=== PATIENT | male | born 1960 | race Caucasian/White ===

== ENCOUNTER 2020-02-05 23:57 | Emergency (ER) | payer BC, SELFPAY ==
[2020-02-06 00:03] VITALS: BP 152/93; PULSE 50; RESP 16; TEMP 36.3; O2SAT 100; BMI 28.7
--- NOTE | 2020-02-06 00:21 | CT_ITS ---
PROCEDURE: CT ABDOMEN PELVIS W CON CLINICAL INDICATION: RLQ pain Right lower quadrant pain and vomiting COMPARISON: No exams were available for comparison TECHNIQUE: IV Contrast: 75ML OPTIRAY 350 Oral Contrast None Axial images obtained with sagittal and coronal reformats. All CT scans at the facility use one or more dose reduction, viz: automated exposure control, ma/kV adjustment per patient size (including targeted exams where dose is matched to indication, i.e. head), or iterative reconstruction technique. FINDINGS: LOWER THORAX: There is a faint nodular opacity in the right middle lobe nonspecific measuring 6 by 3 mm. ABDOMEN & PELVIS: The gallbladder is mildly distended. The liver, adrenal glands, and pancreas have an unremarkable appearance. There is a 10 mm low-density nonenhancing lesion in the spleen anteriorly with indeterminate density measuring 33 Hounsfield units. There is mild nonspecific thickening of the distal esophagus with small hiatal hernia. There is mild right hydronephrosis and hydroureter secondary to a 4 mm stone at the ureterovesical junction. There is a 4 mm stone in the upper pole of the left kidney. There is a 2.9 x 1.6 cm left renal cyst. A 2 mm stone is present in the lower pole of the left kidney. There is mild central mesenteric haziness without robina enlargement. This may be seen with mesenteric thank you light is among other entities. The prostate is enlarged at 4.4 cm. Unremarkable appendix. No intestinal obstruction or free air. There is a small umbilical hernia containing fat. No acute bony findings. IMPRESSION: 1. 4 mm right ureterovesical junction stone with mild right hydroureteronephrosis. 2. Left nephrolithiasis. 3. 10 mm indeterminate low-density lesion of the spleen. Suggest 6 month MRI follow-up without and with contrast. 4. Central mesenteric haziness without robina enlargement which may be seen with mesenteric panniculitis among other etiologies. Dictated by: Jd Byrd MD 02/06/2020 08:33 Jd Byrd MD in [place] 02/06/2020 08:33
[2020-02-06 00:29] LABS: Alanine Aminotransferase 33 U/L (12-78); Albumin Level 4.6 g/dl (3.5-5.0); Albumin/Globulin Ratio 1.6 (1.1-1.8); Alkaline Phosphatase 72 U/L (38-126); Anion Gap 10.8 mEq/L (5-15); Aspartate Amino Transferase 41 U/L (17-59); Bilirubin,Total 0.5 mg/dl (0.2-1.3); Blood Urea Nitrogen 24 mg/dl (9-20); Calcium 9.3 mg/dl (8.4-10.2); Carbon Dioxide 32 mmol/L (22.0-30.0); Chloride 103 mmol/L (98-107); Creatinine Clearance Estimated 78 mL/min (50-200); Estimated Glomerular Filt Rate 62 ml/min (>60); GFR (African American) 76 ML/MIN (>60); Globulin 2.8 g/dL (1.3-3.2); Glucose 161 mg/dl (74-100); Lipase 112 U/L (23-300); Potassium 3.8 mmoL/L (3.5-5.1); Sodium 142 mmol/L (136-145); Total Protein,Serum 7.4 g/dl (6.3-8.2)
[2020-02-06 00:30] VITALS: BP 158/91; PULSE 54; RESP 17; O2SAT 99
[2020-02-06 00:30] LABS: Basophils % 0.3 % (0.1-2.0); Eosinophils # 0.3 K/mm3 (0.0-0.4); Eosinophils % 2.8 % (0.1-12.0); Hematocrit 47.8 % (42.0-52.0); Hemoglobin 16.4 g/dL (14.1-18.0); Lymphocytes # 2.4 K/mm3 (0.7-4.5); Lymphocytes % 26.4 % (10-50); Mean Corpuscular HGB Conc 34.2 g/dL (31.8-35.4); Mean Corpuscular Hemoglobin 30.9 pg (27.0-31.2); Mean Corpuscular Volume 90.2 fl (80-94); Mean Platelet Volume 6.8 fl (7.4-10.4); Monocytes # 0.5 K/mm3 (0.1-1.0); Monocytes % 5.5 % (1.7-9.3); Neutrophils # 5.8 K/mm3 (1.8-7.8); Neutrophils % 64.9 % (37.0-80.0); Platelet Count 254 K/mm3 (142-424); Red Cell Distribution Width 13.4 % (11.5-17.5); White Blood Count 8.9 K/mm3 (4.8-10.8)
--- NOTE | 2020-02-06 00:45 | HMH.EDGENADL ---
ED Disposition Clinical Impression: Nephrolithiasis Disposition: Home, Self-Care Condition on Discharge: Good Instructions: DI for Acute Abdomen Additional Instructions: You were found to have a 10mm low density non enhancing lesion in your spleen, you will need an evaluation with PET or MRI or biopsy, please follow up with your primary care doctor to schedule the next workup. Prescriptions: Ketorolac Tromethamine [Toradol 10mg tablet] 10 mg PO Q6H 3 Days #12 tab Prescription Printed Referrals: PCP,Miley [Primary Care Provider] - 7-14 days Zion Clark MD [Staff Physician] - - Critical Care Critical Care Time: No Attestation: On 02/05/20, the high probability of a clinically significant, sudden or life threatening deterioration of the following system(s) required my full and direct attention, intervention and personal management. The time I documented below is in addition to time spent performing reported procedures but includes the following listed in this critical care notation. Medical Decision Making - Isael Inquiry Pt receiving controlled substance: No Vital Signs: 02/06/20 00:03 02/06/20 00:30 Temperature 97.4 F L Temperature Source Oral Pulse Rate [Left] 50 L 54 L Respiratory Rate 16 17 Blood Pressure [Right Arm] 152/93 H 158/91 H Blood Pressure Mean [Right Arm] 112 113 Blood Pressure Source [Right Arm] Automatic Cuff Automatic Cuff Blood Pressure Position [Right Arm] Supine 02 Sat by Pulse Oximetry 100 99 Oxygen Delivery Method Room Air - Lab Data Lab Results 02/06/20 00:05: WBC 8.9, RBC 5.30, Hgb 16.4, Hct 47.8, MCV 90.2, MCH 30.9, MCHC 34.2, RDW 13.4, Plt Count 254, MPV 6.8 L, Neut % (Auto) 64.9, Lymph % (Auto) 26.4, [place] % (Auto) 5.5, Eos % (Auto) 2.8, Baso % (Auto) 0.3, Neut # (Auto) 5.8, Lymph # (Auto) 2.4, [place] # (Auto) 0.5, Eos # (Auto) 0.3, Baso # (Auto) 0.0 02/06/20 00:05: Sodium 142, Potassium 3.8, Chloride 103, Carbon Dioxide 32 H, Anion Gap 10.8, BUN 24 H, Creatinine 1.20, Estimated Creat Clear 78, Estimated GFR 62, Est GFR ( Amer) 76, Glucose 161 H, Calcium 9.3, Total Bilirubin 0.5, AST 41, ALT 33, Alkaline Phosphatase 72, Total Protein 7.4, Albumin 4.6, Globulin 2.8, Albumin/Globulin Ratio 1.6, Lipase 112 02/06/20 01:07: Urine Color Yellow, Urine Appearance Clear, Urine pH 5.5, Ur Specific Blue >= 1.030, Urine Protein Negative, Urine Glucose (UA) Negative, Urine Ketones Negative, Urine Blood Negative, Urine Nitrate Negative, Urine Bilirubin Negative, Urine Urobilinogen 0.2, Ur Leukocyte Esterase Negative, Urine WBC 3-5, Urine Bacteria 1+, Urine Mucus 1+ Result diagrams: 02/06/20 00:05 02/06/20 00:05 Orders (Tests/Meds): ED MEDICATIONS Discontinued Medications Generic Name Dose Route Start Last Admin Trade Name Freq PRN Reason Stop Dose Admin Acetaminophen 1,000 mg 02/06/20 00:47 Tylenol 500mg Tablet PO 02/06/20 00:48 ONCE ONE Ketorolac Tromethamine 15 mg 02/06/20 01:38 Toradol 30mg/Ml Vial IV 02/06/20 01:39 ONCE ONE Morphine Sulfate 4 mg 02/06/20 00:47 02/06/20 01:13 Morphine 4mg/Ml Syringe IV 02/06/20 00:48 4 mg ONCE ONE Administration Ondansetron HCl 4 mg 02/06/20 01:10 02/06/20 01:13 Zofran 4mg/2ml Vial IV 02/06/20 01:11 4 mg ONCE ONE Administration ORDERS Category Date Time Status CT abdomen pelvis w con Stat Cat Scan 02/06/20 00:21 Ordered Medical Decision Narrative: in summary pt presents for abdominal pain. Patient's vital signs are stable, patient on exam has tenderness in the right lower quadrant, due to concern for appendicitis, kidney stone mother abdominal pathology, labs, CT scan ordered. 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
[2020-02-06 01:12] LABS: Microscopic, Urine URINE MICROSCOPIC (MICROSCOPIC)
[2020-02-06 01:13] LABS: Appearance,Urine CLEAR (Clear); Bilirubin,Urine Negative (Negative); Blood, Urine Negative (Negative); Color,Urine YELLOW (Yellow); Glucose,Urine (UA) Negative (Negative); Ketones,Urine Negative (Negative); Leukocyte Esterase,Urine Negative (Negative); Nitrate,Urine Negative (Negative); PH,Urine 5.5 (5.0-8.5); Protein,Urine Negative (Negative); Specific Gravity, Urine >= 1.030 (1.005-1.030); Urobilinogen,Urine 0.2 EU/dl (0.2)
[2020-02-06 01:24] LABS: Bacteria,Urine 1+ /lpf; Mucus,Urine 1+ /lpf
[2020-02-06 02:18] VITALS: BP 129/78; PULSE 84; RESP 16; TEMP 36.5; O2SAT 97
== END 2020-02-06 02:18 | disposition home or self-care (01) ==
PROVIDERS: Emergency Provider Emergency Medicine; PCP Internal Medicine
DX: N20.0 Calculus of kidney (principal); Z87.891 Personal history of nicotine dependence
CPT/HCPCS: 74177; 80053; 81001; 83690; 85025; 96374; 96375; 99284; J2405; Q9967

== ENCOUNTER 2020-10-30 08:43 | Emergency (ER) | payer BC, SELFPAY ==
[2020-10-30] VITALS (8 sets, daily range): BP systolic 126–145; BP diastolic 82–89; PULSE 51–65; RESP 16–18; TEMP 36.9–37.1; O2SAT 97–99; BMI 29.0
[2020-10-30 09:06] LABS: Basophils % 0.4 % (0.1-2.0); Eosinophils # 0.2 K/mm3 (0.0-0.4); Eosinophils % 3.3 % (0.1-12.0); Hematocrit 46.4 % (42.0-52.0); Hemoglobin 15.7 g/dL (14.1-18.0); Lymphocytes # 1.8 K/mm3 (0.7-4.5); Mean Corpuscular HGB Conc 33.9 g/dL (31.8-35.4); Mean Corpuscular Hemoglobin 30.1 pg (27.0-31.2); Mean Corpuscular Volume 88.8 fl (80-94); Mean Platelet Volume 7.1 fl (7.4-10.4); Monocytes # 0.3 K/mm3 (0.1-1.0); Monocytes % 6.6 % (1.7-9.3); Neutrophils # 2.9 K/mm3 (1.8-7.8); Neutrophils % 55.6 % (37.0-80.0); Platelet Count 253 K/mm3 (142-424); Red Blood Count 5.22 M/mm3 (4.60-6.20); Red Cell Distribution Width 13.2 % (11.5-17.5); White Blood Count 5.1 K/mm3 (4.8-10.8)
--- NOTE | 2020-10-30 09:10 | [facility].EDGENADL ---
ED Disposition Clinical Impression: Nephrolithiasis, Ureterolithiasis Disposition: Home, Self-Care Condition on Discharge: Good Instructions: Kidney Stones -- Adult Prescriptions: Tamsulosin HCl 0.4 mg PO DAILY #14 cap Prescription Printed Ketorolac Tromethamine [Toradol 10mg tablet] 10 mg PO Q6H 5 Days #20 tab Prescription Printed Referrals: Mahogany Frankel MD [Primary Care Provider] - - Critical Care Critical Care Time: No Attestation: On 10/30/20, the high probability of a clinically significant, sudden or life threatening deterioration of the following system(s) required my full and direct attention, intervention and personal management. The time I documented below is in addition to time spent performing reported procedures but includes the following listed in this critical care notation. Medical Decision Making - Medical Records Medical records reviewed: Yes: I reviewed the patient's medical records. - Isael Inquiry Pt receiving controlled substance: No Vital Signs: 10/30/20 08:47 10/30/20 09:27 Temperature 98.7 F Temperature Source Oral Pulse Rate 57 L Pulse Rate [Right] 59 L Respiratory Rate 16 18 Blood Pressure 126/89 Blood Pressure [Right Arm] 145/88 H Blood Pressure Mean [Right Arm] 107 02 Sat by Pulse Oximetry 97 98 Oxygen Delivery Method Room Air - Lab Data Lab results reviewed: Yes: I reviewed the patient's lab results. Lab Results 10/30/20 08:53: WBC 5.1, RBC 5.22, Hgb 15.7, Hct 46.4, MCV 88.8, MCH 30.1, MCHC 33.9, RDW 13.2, Plt Count 253, MPV 7.1 L, Neut % (Auto) 55.6, Lymph % (Auto) 34.0, [place] % (Auto) 6.6, Eos % (Auto) 3.3, Baso % (Auto) 0.4, Neut # (Auto) 2.9, Lymph # (Auto) 1.8, Drew # (Auto) 0.3, Eos # (Auto) 0.2, Baso # (Auto) 0.0 10/30/20 08:53: Sodium 140, Potassium 3.8, Chloride 107, Carbon Dioxide 23, Anion Gap 13.8, BUN 18, Creatinine 0.90, Estimated Creat Clear 105, Estimated GFR 87, Est GFR ( Amer) 105, Glucose 140 H, Calcium 8.7, Total Bilirubin 0.9, AST 31, ALT 28, Alkaline Phosphatase 64, CK-MB (CK-2) 2.5 H, Troponin I < 0.01, NT-Pro-B Natriuret Pep 22.5, Total Protein 7.4, Albumin 4.7, Globulin 2.7, Albumin/Globulin Ratio 1.7 10/30/20 08:53: Lipase 102 10/30/20 09:25: Lactate 1.6 10/30/20 09:39: Urine Color Yellow, Urine Appearance Clear, Urine pH 6.0, Ur Specific [place] >= 1.030, Urine Protein Trace, Urine Glucose (UA) Negative, Urine Ketones Negative, Urine Blood 3+, Urine Nitrate Negative, Urine Bilirubin 1+ A, Urine Urobilinogen 1.0, Ur Leukocyte Esterase Negative, Urine RBC 20-50, Urine WBC 3-5, Ur Squamous Epith Cells 3-5, Urine Bacteria None Result diagrams: 10/30/20 08:53 10/30/20 08:53 Orders (Tests/Meds): ED MEDICATIONS Discontinued Medications Generic Name Dose Route Start Last Admin Trade Name Case PRN Reason Stop Dose Admin Furosemide 80 mg 10/30/20 08:47 10/30/20 09:20 Furosemide 100mg/10ml Vial IV 10/30/20 08:48 Not Given ONCE ONE Ketorolac Tromethamine 30 mg 10/30/20 09:10 10/30/20 09:18 Ketorolac 30mg/Ml Vial IV 10/30/20 09:11 30 mg ONCE ONE Administration Ondansetron HCl 8 mg 10/30/20 09:10 10/30/20 09:19 Ondansetron 4mg/2ml Vial IV 10/30/20 09:11 8 mg ONCE ONE Administration ORDERS Category Date Time Status CT abdomen pelvis wo con Stat Cat Scan 10/30/20 09:53 Ordered XR chest portable Stat Exams 10/30/20 08:47 Stop Req - CT Data CT Scan: Abdomen, Pelvis Time Received: 10:[address] Reviewed: Yes: I have reviewed the patient's CT results Preliminary Findings: Abnormal Findings Narrative: 3mm stone at L.UVJ w/ mild L.Hydronephrosis General Adult HPI - General Chief complaint: PAIN Stated complaint: lt side pain, cold pain, possible kidney stone Time Seen by Provider: 10/30/20 09:05 Mode of Arrival: Ambulatory Limitations: No Limitations Description of Symptoms (Recalled from ER Triage Doc. by RN): pt c/o of L flank pain that started this am. pt is also hav
[2020-10-30 09:12] LABS: Chloride 107 mmol/L (98-107); Potassium 3.8 mmoL/L (3.5-5.1); Sodium 140 mmol/L (136-145)
[2020-10-30 09:15] LABS: Alanine Aminotransferase 28 U/L (12-78); Albumin Level 4.7 g/dl (3.5-5.0); Albumin/Globulin Ratio 1.7 (1.1-1.8); Alkaline Phosphatase 64 U/L (38-126); Anion Gap 13.8 mEq/L (5-15); Aspartate Amino Transferase 31 U/L (17-59); Bilirubin,Total 0.9 mg/dl (0.2-1.3); Blood Urea Nitrogen 18 mg/dl (9-20); Carbon Dioxide 23 mmol/L (22.0-30.0); Creatinine Clearance Estimated 105 mL/min (50-200); Estimated Glomerular Filt Rate 87 ml/min (>60); GFR (African American) 105 ML/MIN (>60); Globulin 2.7 g/dL (1.3-3.2); Total Protein,Serum 7.4 g/dl (6.3-8.2)
[2020-10-30 09:16] LABS: Calcium 8.7 mg/dl (8.4-10.2); Glucose 140 mg/dl (74-100)
[2020-10-30 09:21] LABS: Lipase 102 U/L (23-300)
[2020-10-30 09:24] LABS: Creatine Kinase MB 2.5 ng/ml (0.0-2.03)
[2020-10-30 09:25] LABS: NT Pro Brain Natriuretic Pep. 22.5 pg/mL (0-125)
[2020-10-30 09:32] LABS: Troponin I < 0.01 ng/ml (0.00-0.034)
[2020-10-30 09:40] LABS: Lactic Acid 1.6 mmol/L (0.7-2.1)
[2020-10-30 09:47] LABS: Appearance,Urine CLEAR (Clear); Blood, Urine 3+ (Negative); Color,Urine YELLOW (Yellow); Glucose,Urine (UA) Negative (Negative); Ketones,Urine Negative (Negative); Leukocyte Esterase,Urine Negative (Negative); Nitrate,Urine Negative (Negative); Protein,Urine TRACE (Negative); Specific Gravity, Urine >= 1.030 (1.005-1.030)
[2020-10-30 09:48] LABS: Microscopic, Urine URINE MICROSCOPIC (MICROSCOPIC)
[2020-10-30 09:49] LABS: Bilirubin,Urine 1+ (Negative)
[2020-10-30 09:50] LABS: RBC,Urine 20-50 #/hpf (0-3)
--- NOTE | 2020-10-30 09:53 | CT_ITS ---
PROCEDURE INFORMATION: Exam: CT Abdomen And Pelvis Without Contrast Exam date and time: 10/30/2020 9:53 AM Age: 59 years old Clinical indication: Abdominal pain; Generalized; Patient HX: Llq pain; Additional info: Llq abd pain; Hematuria TECHNIQUE: Imaging protocol: Computed tomography of the abdomen and pelvis without contrast. Radiation optimization: All CT scans at this facility use at least one of these dose optimization techniques: automated exposure control; mA and/or kV adjustment per patient size (includes targeted exams where dose is matched to clinical indication); or iterative reconstruction. COMPARISON: CT ABDOMEN PELVIS W CON 02/06/2020 12:52 AM FINDINGS: Liver: Normal. No mass. Gallbladder and bile ducts: Normal. No calcified stones. No ductal dilation. Pancreas: Normal. No ductal dilation. Spleen: Normal. No splenomegaly. Adrenal glands: Normal. No mass. Kidneys and ureters: Few bilateral intrarenal calculi. Mild left perinephric stranding and hydronephrosis secondary to a 2.5 mm calculus located at or just inside the left ureterovesical junction. 1.8 cm cyst off the midportion of the left kidney. Stomach and bowel: Unremarkable. No obstruction. No mucosal thickening. Appendix: The appendix is seen and is normal in appearance. Intraperitoneal space: Unremarkable. No free air. No significant fluid collection. Vasculature: Unremarkable. No abdominal aortic aneurysm. Lymph nodes: Several subcentimeter mesenteric lymph nodes. Urinary bladder: Unremarkable as visualized. Reproductive: Unremarkable as visualized. Bones/joints: Unremarkable. No acute fracture. Soft tissues: Unremarkable. IMPRESSION: 1. Few bilateral intrarenal calculi. Mild left perinephric stranding and hydronephrosis secondary to a 2.5 mm calculus located at or just inside the left ureterovesical junction. 2. Remainder of findings as described above. COMMENTS: Consistent with the [employer]'s Incidental Findings Committee white paper (J Am Corby Radiol 2018): Any incidental renal lesion less than 1 cm or classified as too small to characterize, or any incidental cystic renal lesion characterized as simple-appearing, is likely benign. No follow-up imaging is recommended for these lesions per consensus recommendations based on imaging criteria.
== END 2020-10-30 10:33 | disposition home or self-care (01) ==
PROVIDERS: Emergency Provider Emergency Medicine; PCP Internal Medicine
DX: N20.0 Calculus of kidney (principal); N20.1 Calculus of ureter; Z87.442 Personal history of urinary calculi; Z87.891 Personal history of nicotine dependence
CPT/HCPCS: 74176; 80053; 81001; 82553; 83605; 83690; 83880; 84484; 85025; 96374; 96375; 99283; J2405

== ENCOUNTER 2022-02-05 10:07 | Emergency (ER) | payer BC, SELFPAY ==
[2022-02-05 10:15] VITALS: BP 111/88; PULSE 91; RESP 20; TEMP 36.7; O2SAT 96; BMI 30.7
--- NOTE | 2022-02-05 10:21 | EXP.UTC ---
Discharge Plan Disposition Patient Disposition: Home, Self-Care Condition: Good Prescriptions Prescriptions: New benzonatate [benzonatate] 100 mg capsule 100 mg PO TIDP PRN (Reason: Cough) Qty: 30 0RF ondansetron 4 mg Tablet,Disintegrating 4 mg PO Q8H PRN (Reason: Nausea) Qty: 20 0RF No Action celecoxib 200 MG capsule 200 mg PO QID gabapentin 300 MG capsule 300 mg PO BID vitamin B complex 1 EACH tablet 1 each PO DIRECTED alpha lipoic acid 600 MG capsule 600 mg PO QID mecobalamin (vitamin B12) 1,000 MCG tablet,chewable 1,000 mcg PO DIRECTED ketorolac 10 MG tablet 10 mg PO Q6H 3 Days Qty: 12 0RF ketorolac 10 MG tablet 10 mg PO Q6H 5 Days Qty: 20 0RF tamsulosin 0.4 MG capsule 0.4 mg PO DAILY Qty: 14 0RF Referrals Follow up/Referrals: Mahogany Frankel MD [Primary Care Provider] - See instructions Activity Restrictions/Add. Instructions Additional Instructions/Restrictions: Drink plenty of fluids. Take tylenol or ibuprofen for pain or fever. Take the medications as directed. Follow up with your regular doctor. GO TO THE ER FOR ANY WORSENING SYMPTOMS Quarantine until you know the results of your covid-19 test. Notify your school or workplace of your results and follow their instructions regarding return to work/school. Clinical Impressions Clinical Impression: Viral syndrome, Exposure to 2019 novel coronavirus Instructions Patient Instructions: Coronavirus Disease 2019, Preventing the Spread of Coronavirus Discharge Instructions Discharge ED Provider: Dariel Villasenor [facility] General Stated complaint: chills,cough,fever,body aches Time Seen by Provider: 02/05/22 10:21 History of Present Illness Provider Complaint: He states that he has felt bad and had body aches for the past 2 days. He tested positive on a home covid-19 test this morning. He is here because his work ([employer]) requires him to have a pcr covid-19 test. He denies any shortness of breath or significant congestion. Related Data Home Medications Medication Instructions Recorded Confirmed alpha lipoic acid 600 mg capsule 600 mg PO QID Supplement 02/06/20 02/06/20 celecoxib 200 mg capsule 200 mg PO QID Pain 02/06/20 02/06/20 gabapentin 300 mg capsule 300 mg PO BID Pain 02/06/20 02/06/20 mecobalamin (vitamin B12) 1,000 1,000 mcg PO DIRECTED Supplement 02/06/20 02/06/20 mcg chewable tablet vitamin B complex 1 each PO DIRECTED Supplement 02/06/20 02/06/20 Previous Rx's Medication Instructions Recorded ketorolac 10 mg tablet 10 mg PO Q6H 3 days #12 tabs 02/06/20 ketorolac 10 mg tablet 10 mg PO Q6H 5 days #20 tabs 10/30/20 tamsulosin 0.4 mg capsule 0.4 mg PO DAILY #14 caps 10/30/20 benzonatate 100 mg capsule 100 mg PO TIDP PRN Cough #30 caps 02/05/22 ondansetron 4 mg disintegrating 4 mg PO Q8H PRN Nausea #20 tabs 02/05/22 tablet Allergies Allergy/AdvReac Type Severity Reaction Status Date / Time No Known Allergies Allergy Verified 10/30/20 09:07 [facility] Medical History History of gastroesophageal reflux (GERD) Kidney stone Surgical History History of ankle surgery History of eye surgery History of surgery on wrist Social History Smoking Status: Former smoker alcohol intake: current current occupational status: employed Travel in the last 8 weeks: None ROS Obtained: Yes All systems reviewed & no additional complaints except as documented Constitutional Constitutional: Reports system reviewed and no additional complaints, except as documented, Denies chills and Denies fever(s) Eyes Eyes: Denies eye discharge ENT Ears, Nose, Mouth, and Throat: Denies dysphagia, Denies sore throat and Denies throat swelling Cardiovascular Cardiovascular: Denies chest pain and [place]
[2022-02-05 10:40] VITALS: BP 111/88; PULSE 91; RESP 20; TEMP 36.7; O2SAT 96
== END 2022-02-05 10:43 | disposition home or self-care (01) ==
PROVIDERS: Emergency Provider Nurse Practitioner Family; PCP Internal Medicine
DX: U07.1 COVID-19 (principal)
CPT/HCPCS: 99212; C9803; G0463; U0003; U0005

== ENCOUNTER 2022-10-05 08:00 | Outpatient (RCR) | payer OTHER, SELFPAY | END 2022-10-05 08:05 | disposition home or self-care (01) | LOC: OT 08:00 | DX: M25.512 Pain in left shoulder (principal); M75.102 Unspecified rotator cuff tear or rupture of left shoulder, not specified as traumatic | CPT/HCPCS: 97010; 97014; 97110; 97140; 97164; 97166; 97530; G0283 ==

== ENCOUNTER 2024-01-30 15:00 | Outpatient (RCR) | payer OTHER, BC, SELFPAY | END 2024-01-30 15:05 | disposition home or self-care (01) | LOC: PT 15:00 | PROVIDERS: Visit Provider Podiatrist Foot & Ankle Surgery | DX: Z48.89 Encounter for other specified surgical aftercare (principal); M25.571 Pain in right ankle and joints of right foot | CPT/HCPCS: 97035; 97110; 97163; 97164; 97530 ==

== ENCOUNTER 2025-01-09 14:00 | Outpatient (RCR) | payer OTHER, BC, SELFPAY | END 2025-01-09 23:59 | disposition home or self-care (01) | LOC: PT 14:00 | PROVIDERS: PCP Internal Medicine; Visit Provider Podiatrist Foot & Ankle Surgery | DX: M12.571 Traumatic arthropathy, right ankle and foot (principal) | CPT/HCPCS: 97110; 97140; 97161; 97530; 97760 ==

== ENCOUNTER 2025-02-10 10:00 | Outpatient (RCR) | payer OTHER, BC, SELFPAY | END 2025-02-10 23:59 | disposition home or self-care (01) | LOC: PT 10:00 | PROVIDERS: PCP Internal Medicine; Visit Provider Podiatrist Foot & Ankle Surgery | DX: Z48.89 Encounter for other specified surgical aftercare (principal) | CPT/HCPCS: 97110; 97112; 97530 ==

== ENCOUNTER 2025-02-25 10:00 | Outpatient (RCR) | payer OTHER, BC, SELFPAY | END 2025-02-25 23:59 | disposition home or self-care (01) | LOC: PT 10:00 | PROVIDERS: PCP Internal Medicine; Visit Provider Podiatrist Foot & Ankle Surgery | DX: Z48.89 Encounter for other specified surgical aftercare (principal); M12.571 Traumatic arthropathy, right ankle and foot | CPT/HCPCS: 97110; 97112 ==